=== PATIENT | male | born 1965 | race Caucasian/White ===

== ENCOUNTER 2020-12-18 12:37 | Emergency (ER) | payer MEDICAID, OTHER ==
[~2020-12-18] VITALS: Ht 177.8 cm; Wt 72.6 kg
[2020-12-18] MEDS ORDERED: KETOROLAC TROMETH 60MG/2ML VIAL IM ONE (14:45)
[2020-12-18 15:11] VITALS: BP 141/88
== END 2020-12-18 15:17 | disposition home or self-care (01) ==
LOC: ER 12:37
DX: M54.42 Lumbago with sciatica, left side (principal); G89.29 Other chronic pain; F17.210 Nicotine dependence, cigarettes, uncomplicated
CPT/HCPCS: 96372; 99283; J1885